=== PATIENT | male | born 1980 | race American Indian/Alaskan Native ===

== ENCOUNTER 2019-04-26 09:24 | Emergency (ER) | payer MEDICAID, OTHER ==
[2019-04-26 09:37] VITALS: BP 136/94; PULSE 64
--- NOTE | 2019-04-26 09:54 | EDM.PDOC ---
ED HPI GENERAL MEDICAL PROBLEM - General Chief Complaint: Lower Extremity Injury/Pain Stated Complaint: HURT KNEE AT WORK Time Seen by Provider: 04/26/19 09:30 Source of Information: Reports: Patient, RN, RN Notes Reviewed History Limitations: Reports: No Limitations - History of Present Illness INITIAL COMMENTS - FREE TEXT/NARRATIVE: Pt to ER with c/o left knee pain. 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 Denies any other injury to the knee. States he has been ambulating on it, pain with ambulation and bending. Onset: Sudden Onset Date: 04/25/19 Left Knee Pain Score (Numeric/FACES): 9 - Related Data Allergies Allergy/AdvReac Type Severity Reaction Status Date / Time No Known Allergies Allergy Verified 06/01/15 00:03 Home Meds: Home Meds . [No Known Home Meds] 06/01/15 [History] Past Medical History - Past Health History Medical/Surgical History: Denies Medical/Surgical History Other Musculoskeletal History: Pt report previous surgery to shoulder. Social & Family History - Tobacco Use Smoking Status *Q: Current Every Day Smoker Years of Tobacco use: 5 Packs/Tins Daily: 1 - Recreational Drug Use Recreational Drug Use: No Review of Systems - Review of Systems Review Of Systems: ROS reveals no pertinent complaints other than HPI. ED EXAM, GENERAL - Physical Exam Exam: See Below Exam Limited By: No Limitations General Appearance: Alert, WD/WN, No Apparent Distress Eye Exam: Bilateral Eye: EOMI, Normal Inspection Ears: Normal External Exam, Hearing Grossly Normal Nose: Normal Inspection Throat/Mouth: Normal Inspection, Normal Voice, No Airway Compromise Head: Atraumatic, Normocephalic Neck: Normal Inspection, Supple, Non-Tender, Full Range of Motion Respiratory/Chest: No Respiratory Distress, Lungs Clear, Normal Breath Sounds, No Accessory Muscle Use, Chest Non-Tender Cardiovascular: Normal Peripheral Pulses, Regular Rate, Rhythm, No Edema, No Gallop, No JVD, No Murmur, No Rub Peripheral Pulses: 2+: Radial (L), Radial (R) GI/Abdominal: Normal Bowel Sounds, Soft, Non-Tender (Male) Exam: Deferred Rectal (Males) Exam: Deferred Back Exam: Normal Inspection, Full Range of Motion, NT Extremities: Normal Capillary Refill, Joint Swelling (minimal, left knee), Leg Pain (left knee), Limited Range of Motion (left knee) Neurological: Alert, Oriented, CN II-XII Intact, Normal Cognition, Normal Gait, Normal Reflexes, No Motor/Sensory Deficits Psychiatric: Normal Affect, Normal Mood Skin Exam: Warm, Dry, Intact, Normal Color, No Rash Lymphatic: No Adenopathy Course - Vital Signs Last Recorded V/S: Last Vital Signs Temp 97.8 F 04/26/19 11:25 Pulse 64 04/26/19 11:25 Resp 18 04/26/19 11:25 BP 136/94 H 04/26/19 09:35 Pulse Ox 98 04/26/19 11:25 - Radiology Interpretation Free Text/Narrative:: Left knee xray: FINDINGS: Bones/joints: There is no fracture or dislocation. There is no significant narrowing of the joint compartments. No significant osteophytes are appreciated. Soft tissues: Normal. IMPRESSION: No acute findings Thank you for allowing us to participate in the care of your patient. Dictated and Authenticated by: Caesar Tsang MD 04/26/2019 10:41 AM Central Time ([place] & [place]) See rad report Departure - Departure Time of Disposition: 10:59 Disposition: Home, Self-Care 01 Condition: Fair Clinical Impression: Sprain of knee Qualifiers: Encounter type: initial encounter Involved ligament of knee: unspecified ligament Laterality: left Qualified Code(s): S83.92XA - Sprain of unspecified site of left knee, initial encounter - Discharge Information *PRESCRIPTION DRUG MONITORING PROGRAM REVIEWED*: No *COPY OF PRESCRIPTION DRUG MONITORING REPORT IN PATIENT KALIN: No Instructions: Cast or Splint Care, Adult, [id number], Knee Sprain, Adult, [id number], Muscle Strain, [id number] Referrals: PCP,None [Primary Care Provider] - Forms: ED Department Discharge Additional Instructions: May use knee sleeve ([employer]) Elevate and ice the knee as often as possible Rest Follow up with your primary care facility if no improvement May use Tylenol and/or Ibuprofen as directed for pain
== END 2019-04-26 11:30 | disposition home or self-care (01) ==
LOC: DL.ED 09:24
DX: S82.92XA Unspecified fracture of left lower leg, initial encounter for closed fracture (principal); F17.210 Nicotine dependence, cigarettes, uncomplicated; W17.2XXA Fall into hole, initial encounter; Y99.0 Civilian activity done for income or pay
CPT/HCPCS: 73564-LT; 99283-25

== ENCOUNTER 2019-04-27 19:06 | Emergency (ER) | payer SELFPAY ==
[2019-04-27 19:27] VITALS: BP 157/89; PULSE 74
--- NOTE | 2019-04-27 19:59 | EDM.PDOC ---
ED HPI GENERAL MEDICAL PROBLEM - General Chief Complaint: Upper Extremity Injury/Pain Stated Complaint: POSSIBLE BROKEN LEFT HAND Time Seen by Provider: 04/27/19 19:53 Source of Information: Reports: Patient History Limitations: Reports: No Limitations - History of Present Illness INITIAL COMMENTS - FREE TEXT/NARRATIVE: injured left and today. Left Hand Pain Score (Numeric/FACES): 5 - Related Data Allergies Allergy/AdvReac Type Severity Reaction Status Date / Time No Known Allergies Allergy Verified 06/01/15 00:03 Home Meds: Home Meds . [No Known Home Meds] 06/01/15 [History] Past Medical History - Past Health History Medical/Surgical History: Denies Medical/Surgical History Musculoskeletal History: Reports: Fracture Other Musculoskeletal History: Pt report previous surgery to shoulder. - Past Surgical History Musculoskeletal Surgical History: Reports: Shoulder Surgery Social & Family History - Family History Family Medical History: Noncontributory - Tobacco Use Smoking Status *Q: Current Every Day Smoker Years of Tobacco use: 23 Packs/Tins Daily: 1 Used Tobacco, but Quit: No Second Hand Smoke Exposure: Yes - Caffeine Use Caffeine Use: Reports: Coffee, Energy Drinks, Soda, Tea - Recreational Drug Use Recreational Drug Use: Yes Drug Use in Last 12 Months: No Recreational Drug Type: Reports: Methamphetamine Recreational Drug Use Frequency: Not Used In Over 6 Months Review of Systems - Review of Systems Review Of Systems: ROS reveals no pertinent complaints other than HPI. ED EXAM, GENERAL - Physical Exam Exam: See Below Exam Limited By: No Limitations General Appearance: Alert, WD/WN, No Apparent Distress Ears: Hearing Grossly Normal Throat/Mouth: Normal Voice, No Airway Compromise Head: Atraumatic Neck: Non-Tender, Full Range of Motion Respiratory/Chest: No Respiratory Distress Cardiovascular: Regular Rate, Rhythm GI/Abdominal: Soft, Non-Tender Extremities: Other (left hand swollen 5th, tender R/P, NV wnl. only hurts when moves 5th) Neurological: Alert, Oriented, Normal Cognition, Normal Gait, No Motor/Sensory Deficits Psychiatric: Normal Affect, Normal Mood Skin Exam: Warm, Dry, Normal Color Lymphatic: No Adenopathy Course - Vital Signs Last Recorded V/S: Last Vital Signs Temp 36.5 C 04/27/19 19:21 Pulse 74 04/27/19 19:21 Resp 18 04/27/19 19:21 BP 157/89 H 04/27/19 19:21 Pulse Ox 98 04/27/19 19:21 - Orders/Labs/Meds Orders: Active Orders 24 hr Category Date Time Status Hand Comp Min 3V Lt [CR] Urgent Exams 04/27/19 19:18 Taken - Re-Assessments/Exams Free Text/Narrative Re-Assessment/Exam: 04/27/19 19:55 results discussed with pt who states he broke his right hand at the same place also. Departure - Departure Time of Disposition: 19:56 Disposition: Home, Self-Care 01 Condition: Good Clinical Impression: Fracture of metacarpal bone Qualifiers: Encounter type: initial encounter Metacarpal bone: fifth Fracture type: closed Metacarpal location: shaft Laterality: left - Discharge Information Instructions: Metacarpal Fracture, [id number] Additional Instructions: 1) wear splint 2) see clinic tomorrow for ORTHOPEDIC REFERRAL for boxer's fracture. 3) ice for swelling 4) take tylenol or motrin for discomfort - My Orders Last 24 Hours: My Active Orders 04/27/19 19:18 Hand Comp Min 3V Lt [CR] Urgent - Assessment/Plan Last 24 Hours: My Active Orders 04/27/19 19:18 Hand Comp Min 3V Lt [CR] Urgent
== END 2019-04-27 20:14 | disposition home or self-care (01) ==
LOC: DL.ED 19:06
DX: S62.327A Displaced fracture of shaft of fifth metacarpal bone, left hand, initial encounter for closed fracture (principal); F17.210 Nicotine dependence, cigarettes, uncomplicated; W22.01XA Walked into wall, initial encounter
CPT/HCPCS: 73130-LT; 99283-25

== ENCOUNTER 2022-05-15 17:24 | Emergency (ER) | payer MEDICAID ==
[2022-05-15] MEDS ORDERED: Sodium Chloride 0.9% 1,000 ML IV ONE (17:48)
[2022-05-15] MEDS ORDERED: HYDROmorphone 1 MG/ML Syringe IV ONE (17:48)
[2022-05-15] MEDS ORDERED: Ketorolac 30 MG/ML SDV IVPUSH ONE (17:48)
[2022-06-09 09:56] LABS: SODIUM,NA 139 mmol/L (136-145)
[2022-06-09 09:57] LABS: ANION GAP 10.9 mEq/L (7-13); CHLORIDE,CL 103 mmol/L (98-107); ESTIMATED GFR 85 mL/min (>=60)
== END 2022-05-15 19:30 | disposition home or self-care (01) ==
LOC: DL.ED 17:24
DX: R10.9 Unspecified abdominal pain (principal)
CPT/HCPCS: 36415; 74176; 80053; 81003; 85025; 96374; 96375; 99284; J1170; J1885; J7030